=== PATIENT | female | born 1960 | race Caucasian/White ===

== ENCOUNTER 2022-10-07 13:44 | Emergency (ER) | payer OTHER, MEDICAID ==
[~2022-10-07] VITALS: Ht 172.7 cm; Wt 108.9 kg
[2022-10-07 14:18] VITALS: BP 136/85
[2022-10-07 15:35] LABS: BASOPHILS # (AUTO) 0.1 K/uL (0.00-0.22); BASOPHILS % (AUTO) 0.5 % (0.0-2.0); EOSINOPHILS # (AUTO) 0.2 K/uL (0-0.4); EOSINOPHILS % (AUTO) 1.9 % (0.0-4.0); HEMATOCRIT 27.5 % (36-48); HEMOGLOBIN 9.1 g/dL (12.0-16.0); LYMPHOCYTES # (AUTO) 1.5 K/uL (2.5-16.5); LYMPHOCYTES % (AUTO) 14.8 % (20.5-51.1); MEAN CORPUSCULAR HEMOGLOBIN 27 pg (27-31); MEAN CORPUSCULAR HGB CONC 33 g/dL (33-37); MEAN CORPUSCULAR VOLUME 80.4 fL (80-94); MONOCYTES # (AUTO) 0.7 K/uL (0.8-1.0); MONOCYTES % (AUTO) 7.6 % (1.7-9.3); NEUTROPHILS # (AUTO) 7.4 K/uL (1.8-7.7); NEUTROPHILS % (AUTO) 75.2 % (42.2-75.2); PLATELET COUNT (AUTO) 282 K/uL (140-450); RED BLOOD CELL COUNT(AUTO) 3.42 MIL/uL (4.20-5.40); RED CELL DISTRIBUTION WIDTH 16.2 % (11.6-13.7); WHITE BLOOD COUNT (AUTO) 9.8 K/uL (4.8-10.8)
[2022-10-07 15:52] LABS: ALBUMIN 3.5 g/dL (3.4-5.0); ANION GAP 12.8 (8-16); CARBON DIOXIDE 34.7 mmol/L (21-32); CREATININE 0.9 mg/dL (0.6-1.3); POTASSIUM 3.5 mmol/L (3.5-5.1); TOTAL BILIRUBIN 0.2 mg/dL (0.0-1.0)
--- NOTE | 2022-10-07 16:50 | NUR ---
TO ER BED 3
--- NOTE | 2022-10-07 17:35 | NUR ---
PT WALKED TO BATHROOM WITH O2 TANK ON.
[2022-10-07] MEDS ORDERED: LEVO750T75 PO (17:42)
[2022-10-07] MEDS ORDERED: IBUP-2213 PO (17:48)
[2022-10-07] MEDS ORDERED: KETOROLAC 15 MG/ML VIAL IM ONE (17:50)
--- NOTE | 2022-10-07 18:25 | NUR ---
Patient discharged with v/s stable. Written and verbal after care instructions given and explained. Patient alert, oriented and verbalized understanding of instructions. Ambulatory with to car. All questions addressed prior to discharge. ID band removed. Patient advised to follow up with PMD. Rx of TYLENOL AND LEVOQUIN given. Patient educated on indication of medication including possible reaction and side effects. Opportunity to ask questions provided and answered.
[2022-10-07 18:26] VITALS: BP 134/78
== END 2022-10-07 18:25 | disposition home or self-care (01) ==
LOC: MED 13:44
DX: J18.9 Pneumonia, unspecified organism (principal); L03.221 Cellulitis of neck; J44.9 Chronic obstructive pulmonary disease, unspecified; I48.91 Unspecified atrial fibrillation; Z98.890 Other specified postprocedural states; Z79.1 Long term (current) use of non-steroidal anti-inflammatories (NSAID); Z79.2 Long term (current) use of antibiotics
CPT/HCPCS: 36415; 71045; 80053; 83880; 84484; 85025; 93005; 96372; 99285; J1885; Q0092

== ENCOUNTER 2022-10-10 08:14 | Emergency (ER) | payer OTHER, MEDICAID ==
[~2022-10-10] VITALS: Ht 165.1 cm; Wt 95.3 kg
[~2022-10-10 08:14] MED LIST: IBUP-2213 PO; LEVO750T75 PO
--- NOTE | 2022-10-10 08:18 | NUR ---
REPORT RECEIVED FROM [facility]
--- NOTE | 2022-10-10 08:20 | NUR ---
TO BED 10
--- NOTE | 2022-10-10 08:24 | NUR ---
TRACHEAL SUCTION FOR LARGE THICK YELLOW SECRETIONS; SPUTUM CULTURE FORWARDED TO LAB; DR. BRAUN AWARE
[2022-10-10] MEDS ORDERED: cefTRIAXone 1,000 MG in DEXT 5% MINI-BAG PLUS 50 ML IV ONE (08:25)
[2022-10-10 08:28] VITALS: BP 115/58
--- NOTE | 2022-10-10 08:40 | NUR ---
PLACED ON A COOL AEROSOL TO TRACH MASK AT 60%/12 LPM; EFFREN/ED CURLING MACHINE OPERATOR NOTIFIED
--- NOTE | 2022-10-10 08:42 | NUR ---
TRACHEAL SUCTION FOR SMALL SEMI THICK YELLOW SECRETIONS AIRWAY PATENT
--- NOTE | 2022-10-10 08:46 | NUR ---
X-Ray at bedside.
[2022-10-10] MEDS ORDERED: cefTRIAXone 1,000 MG VIAL ONE (08:47)
[2022-10-10 09:11] LABS: BASOPHILS % (AUTO) 0.2 % (0.0-2.0); EOSINOPHILS # (AUTO) 0.2 K/uL (0-0.4); EOSINOPHILS % (AUTO) 2.3 % (0.0-4.0); HEMATOCRIT 27.5 % (36-48); HEMOGLOBIN 8.7 g/dL (12.0-16.0); LYMPHOCYTES # (AUTO) 2.3 K/uL (2.5-16.5); LYMPHOCYTES % (AUTO) 24.1 % (20.5-51.1); MEAN CORPUSCULAR HEMOGLOBIN 26 pg (27-31); MEAN CORPUSCULAR HGB CONC 31 g/dL (33-37); MEAN CORPUSCULAR VOLUME 83.7 fL (80-94); MONOCYTES # (AUTO) 0.6 K/uL (0.8-1.0); MONOCYTES % (AUTO) 6.5 % (1.7-9.3); NEUTROPHILS # (AUTO) 6.4 K/uL (1.8-7.7); NEUTROPHILS % (AUTO) 66.9 % (42.2-75.2); PLATELET COUNT (AUTO) 226 K/uL (140-450); RED BLOOD CELL COUNT(AUTO) 3.29 MIL/uL (4.20-5.40); RED CELL DISTRIBUTION WIDTH 16.8 % (11.6-13.7); WHITE BLOOD COUNT (AUTO) 9.5 K/uL (4.8-10.8)
[2022-10-10 09:29] LABS: ALBUMIN 3.2 g/dL (3.4-5.0); ANION GAP 13.4 (8-16); CARBON DIOXIDE 27.5 mmol/L (21-32); TOTAL BILIRUBIN 0.3 mg/dL (0.0-1.0)
[2022-10-10 09:30] LABS: POTASSIUM 2.9 mmol/L (3.5-5.1)
[2022-10-10] MEDS ORDERED: POTASSIUM CHLORIDE 10 MEQ TABER PO ONE (10:05)
[2022-10-10] MEDS ORDERED: [UNRECOGNIZED DRUG - CODE] PO (10:42)
[2022-10-10] MEDS ORDERED: MESA1.2T3 PO (10:42)
[2022-10-10] MEDS ORDERED: HYDR-4924 PO (10:42)
[2022-10-10] MEDS ORDERED: FAMO20TA13 PO (10:42)
[2022-10-10] MEDS ORDERED: DICY20TA2 PO (10:42)
[2022-10-10] MEDS ORDERED: FERR325E14 PO (10:42)
[2022-10-10] MEDS ORDERED: PREG50CA88 PO (10:42)
[2022-10-10] MEDS ORDERED: PREG25CA PO (10:42)
[2022-10-10] MEDS ORDERED: ESCI20TA49 PO (10:42)
[2022-10-10] MEDS ORDERED: FURO40TA9 (10:42)
[2022-10-10] MEDS ORDERED: TIOT4MIS INH (10:42)
[2022-10-10] MEDS ORDERED: SULF-954 PO (10:42)
[2022-10-10] MEDS ORDERED: ARIP5TAB61 PO (10:42)
[2022-10-10] MEDS ORDERED: BUDE10.23 INH (10:42)
[2022-10-10] MEDS ORDERED: ATOR40TA40 PO (10:42)
[2022-10-10] MEDS ORDERED: METF-346 PO (10:42)
[2022-10-10] MEDS ORDERED: ATI.5 PO (10:42)
[2022-10-10] MEDS ORDERED: LEVO0.1211 PO (10:42)
[2022-10-10] MEDS ORDERED: MORPHINE SULFATE 4 MG/ML SYR IVP ONE (11:35)
[2022-10-10 14:00] VITALS: BP 116/70
--- NOTE | 2022-10-10 16:02 | NUR ---
[facility] AT BEDSIDE FOR TRANSPORT
--- NOTE | 2022-10-10 16:07 | NUR ---
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 PT ALERT X 4, UNDERSTANDS AND ACCEPTS TRANSFER TO [facility]. DENIED URGE TO VOID AT THIS TIME
--- NOTE | 2022-10-10 16:14 | NUR ---
VOIDED PER BEDPAN- VERY SMALL AMOUNT FOR UA
--- NOTE | 2022-10-10 16:20 | NUR ---
NO DISTRESS NOTED GOOD CHEST RISE SPONTANEOUS EXUDATION OF SMALL THICK YELLOW SECRETIONS PATIENT DISCHARGED TRANSFERRED TO [facility] TRANSPORTED BY [facility]
--- NOTE | 2022-10-10 19:37 | NUR ---
ADDENDUM 1400Patient Tranfers to outside Facility Physician:DR ROLDAN Location:[facility] REPORT GIVEN TO ALENA DANIELS
== END 2022-10-10 16:20 | disposition short-term general hospital (02) ==
LOC: MED 08:14
DX: J18.9 Pneumonia, unspecified organism (principal); Z20.822 Contact with and (suspected) exposure to COVID-19; J45.909 Unspecified asthma, uncomplicated; J44.9 Chronic obstructive pulmonary disease, unspecified; I10 Essential (primary) hypertension; E03.9 Hypothyroidism, unspecified; E11.9 Type 2 diabetes mellitus without complications; Z79.4 Long term (current) use of insulin; Z79.899 Other long term (current) drug therapy; Z98.890 Other specified postprocedural states
CPT/HCPCS: 36415; 71045; 80053; 83605; 83880; 84484; 85025; 87040; 87070; 87205; 87426; 87804; 89220; 93005; 94760; 96365; 96375; 99285; J0696; J2270; Q0092

== ENCOUNTER 2023-02-21 12:43 | Inpatient (IN) | payer OTHER, MEDICAID ==
[~2023-02-21] VITALS: Ht 167.6 cm; Wt 103.9 kg
[~2023-02-21 12:43] MED LIST changes: +ARIP5TAB61 PO; +ATI.5 PO; +ATOR40TA40 PO; +BUDE10.23 INH; +DICY20TA2 PO; +ESCI20TA49 PO; +FAMO20TA13 PO; +FERR325E14 PO; +FURO40TA9; +HYDR-4924 PO; +LEVO0.1211 PO; +MESA1.2T3 PO; +METF-346 PO; +PREG25CA PO; +PREG50CA88 PO; +SULF-954 PO; +TIOT4MIS INH; +[UNRECOGNIZED DRUG - CODE] PO
[2023-02-21 12:58] VITALS: BP 114/62; PULSE 99; RESP 20; TEMP 96.4; O2SAT 95
[2023-02-21] MEDS ORDERED: predniSONE 20 MG TAB PO ONE (13:35)
[2023-02-21] MEDS ORDERED: ALBUTEROL 0.083% 2.5 MG/3 ML NEBU INH ONE (13:35)
[2023-02-21] MEDS ORDERED: IPRATROPIUM 0.02% 0.5 MG/2.5 ML NEBU INH ONE (13:35)
[2023-02-21] MEDS ORDERED: ASPIRIN 81 MG TAB.CHEW PO ONE (13:35)
--- NOTE | 2023-02-21 13:50 | NUR ---
BARRY AND FLU SWABBED, SPECIMEN GIVEN TO LAB
[2023-02-21 14:06] LABS: BASOPHILS # (AUTO) 0.1 K/uL (0.00-0.22); BASOPHILS % (AUTO) 0.5 % (0.0-2.0); EOSINOPHILS # (AUTO) 0.1 K/uL (0-0.4); EOSINOPHILS % (AUTO) 0.6 % (0.0-4.0); HEMATOCRIT 34.8 % (36-48); HEMOGLOBIN 10.8 g/dL (12.0-16.0); LYMPHOCYTES # (AUTO) 1.8 K/uL (2.5-16.5); LYMPHOCYTES % (AUTO) 8.7 % (20.5-51.1); MEAN CORPUSCULAR HEMOGLOBIN 24 pg (27-31); MEAN CORPUSCULAR HGB CONC 31 g/dL (33-37); MEAN CORPUSCULAR VOLUME 77.2 fL (80-94); MONOCYTES # (AUTO) 0.9 K/uL (0.8-1.0); MONOCYTES % (AUTO) 4.5 % (1.7-9.3); NEUTROPHILS # (AUTO) 17.2 K/uL (1.8-7.7); NEUTROPHILS % (AUTO) 85.7 % (42.2-75.2); PLATELET COUNT (AUTO) 297 K/uL (140-450); RED CELL DISTRIBUTION WIDTH 18.3 % (11.6-13.7); WHITE BLOOD COUNT (AUTO) 20.1 K/uL (4.8-10.8)
[2023-02-21 14:15] VITALS: PULSE 83; RESP 21; O2SAT 93
[2023-02-21 14:20] LABS: ALBUMIN 3.4 g/dL (3.4-5.0); ANION GAP 9.1 (8-16); CARBON DIOXIDE 37.4 mmol/L (21-32); CREATININE 0.9 mg/dL (0.6-1.3); POTASSIUM 3.5 mmol/L (3.5-5.1); TOTAL BILIRUBIN 0.3 mg/dL (0.0-1.0)
[2023-02-21] MEDS ORDERED: NACL 0.9% 1,000 ML IV ONE ×2 (14:30→15:20)
[2023-02-21] MEDS ORDERED: PIPERACILLIN/TAZOBACTAM 3.375 GM in DEXTROSE 5% 50 ML IV ONE (14:30)
[2023-02-21] MEDS ORDERED: PIPERACILLIN/TAZOBACTAM 3.375 GM VIAL IV ONE (15:37)
[2023-02-21] MEDS ORDERED: ONDANSETRON 4 MG/2 ML VIAL IVP ONE (16:15)
[2023-02-21] MEDS ORDERED: MORPHINE SULFATE 4 MG/ML SYR IVP ONE (16:15)
[2023-02-21] MEDS ORDERED: ASPIRIN 325 MG TAB PO ONE (18:00)
[2023-02-21 18:37] LABS: APPEARANCE,URINE CLEAR (CLEAR); BILIRUBIN,URINE NEGATIVE (NEGATIVE); BLOOD, URINE TRACE-I (NEGATIVE); COLOR,URINE YELLOW (YELLOW); LEUKOCYTE ESTERASE ,URINE NEGATIVE (NEGATIVE); NITRITE, URINE NEGATIVE (NEGATIVE); UGLUCOSE NEGATIVE (NEGATIVE)
[2023-02-21 18:59] LABS: RBC,URINE 0-5 /HPF (0-5)
--- NOTE | 2023-02-21 21:40 | NUR ---
Patient awake and comfortable in bed. No signs of acute distress at this time. Side rails up and call light within reach.
--- NOTE | 2023-02-21 22:00 | NUR ---
Called [facility] to follow-up on admission orders from . Awaiting new orders.
[2023-02-21] MEDS ORDERED: MAGNESIUM OXIDE 400 MG TAB PO PRN (22:35)
[2023-02-21] MEDS ORDERED: KCL 20 MEQ IN 100 mL PREMIX 200 ML IV PRN (22:35)
[2023-02-21] MEDS ORDERED: POTASSIUM CHLORIDE 10 MEQ TABER PO PRN (22:35)
[2023-02-21] MEDS ORDERED: MAG SULF 2000 MG/WATER PREMIX 50 ML IV PRN (22:35)
[2023-02-21] MEDS ORDERED: HYDROcodone/APAP 5/325 MG 1 TAB TAB PO PRN (22:35)
[2023-02-21] MEDS ORDERED: ACETAMINOPHEN 325 MG TAB PO PRN (22:35)
--- NOTE | 2023-02-21 23:25 | NUR ---
Patient assisted to bedside commode.
[2023-02-21] MEDS ORDERED: AZITHROMYCIN 500 MG INJ VIAL IV ONE (23:33)
[2023-02-21] MEDS ORDERED: AZITHROMYCIN 500 MG in DEXTROSE 5% 250 ML IV SCH (23:45)
[2023-02-21] MEDS: MORPHINE SULFATE 4 MG/ML SYR IVP PRN (23:58)
[2023-02-22] VITALS (9 sets, daily range): BP systolic 131; BP diastolic 76; PULSE 62–86; RESP 14–74; TEMP 97.7; O2SAT 94–100
[2023-02-22] MEDS: ALBUTEROL SULFATE/IPRATROPIU 3 ML SOL IH SCH ×4 (00:12→19:35)
[2023-02-22] MEDS: AZITHROMYCIN 500 MG in DEXTROSE 5% 250 ML IV SCH ×2 (00:23→23:26)
--- NOTE | 2023-02-22 00:25 | NUR ---
PATIENT COMPLAINED OF DRYNESS IN NARES, ADDED HUMIDITY TO NASAL CANNULA, CALL LIGHT WITHIN REACH, WILL CONTINUE TO MONITOR
--- NOTE | 2023-02-22 02:12 | NUR ---
Patient asleep and comfortable in bed. No complaints of pain or signs of acute distress at this time. Side rails up and call light within reach.
--- NOTE | 2023-02-22 04:55 | NUR ---
Patient awake and comfortable in bed. Patient complains of 8/10 back pain, aching, radiating to entire back. No signs of acute distress at this time. Side rails up and call light within reach.
[2023-02-22] MEDS ORDERED: DEXAMETHASONE 4 MG/ML VIAL IVP SCH (05:00)
[2023-02-22] MEDS: MORPHINE SULFATE 4 MG/ML SYR IVP PRN ×3 (05:18→20:28)
--- NOTE | 2023-02-22 06:45 | NUR ---
Patient asleep and comfortable in bed. No complaints of pain or signs of acute distress at this time. Side rails up and call light within reach.
[2023-02-22] MEDS: BUDESONIDE 0.5 MG/2 ML NEBU INH SCH ×2 (07:37→19:43)
--- NOTE | 2023-02-22 07:37 | NUR ---
STABLE RESTING COMFORTABLY GOOD CHEST RISE RECEIVED ON HUMIDIFIED SUPPLEMENTAL OXYGEN AT 3 LPM VIA NASAL CANNULA SATURATION 99% POST HHN THERAPY TITRATED FIO2 TO 2 LPM LIDIA/SECURITY POLICE NOTIFIED
--- NOTE | 2023-02-22 08:10 | NUR ---
pt awake. 2L VIA NC. denies pain at this time. on quality assurance monitor body. bed at lowest position, bed rails upx2.
--- NOTE | 2023-02-22 08:14 | NUR ---
pt provided w/ breakfast. pt awake, repositioned and eating in bed.
--- NOTE | 2023-02-22 08:38 | NUR ---
PT C/O INCREASED SOB D/T ANXIETY. MD SRINIVAS VÁSQUEZ Addendum: 02/22/23 at 0859 by PHSEP V ORDER RECEIVED FROM MD ESPINO. ORDERS READ BACK, CONFIRMED AND CARRIED OUT. ATIVAN 1MG IVP Q6H PRN
[2023-02-22] MEDS ORDERED: LORazepam 2 MG/ML VIAL ONE (08:47)
--- NOTE | 2023-02-22 08:54 | NUR ---
PATIENT HAS BEEN SCREENED AND CATEGORIZED MODERATE NUTRITION RISK. PATIENT WILL BE SEEN WITHIN 3-5 DAYS OF ADMISSION. 02/24/23-02/26/[address]
[2023-02-22] MEDS ORDERED: LORazepam 2 MG/ML VIAL IVP PRN (09:00)
[2023-02-22] MEDS ORDERED: cefTRIAXone 2,000 MG VIAL ONE (09:14)
[2023-02-22] MEDS: cefTRIAXone 2,000 MG in DEXTROSE 5% 100 ML IV SCH (09:29)
[2023-02-22] MEDS: ASPIRIN 81 MG TAB.CHEW PO SCH (09:31)
[2023-02-22] MEDS: DOCUSATE SODIUM 100 MG GELCAP PO SCH (09:31)
[2023-02-22] MEDS: ATORVASTATIN 20 MG TAB PO SCH (09:33)
[2023-02-22] MEDS: ENOXAPARIN 40 MG/0.4 ML SYR SUBQ SCH (09:37)
--- NOTE | 2023-02-22 09:55 | NUR ---
MD ESPINO AT BEDSIDE FOR EVALUATION
--- NOTE | 2023-02-22 11:54 | NUR ---
pt provided w/ lunch. pt awake, respositioned and eating in bed
[2023-02-22] MEDS ORDERED: INSULIN LISPRO SLIDING SCALE 100 UNITS/ML VIAL SUBQ PRN (13:45)
[2023-02-22] MEDS ORDERED: DEXTROSE 50% 50 ML SYR IVP PRN (13:45)
--- NOTE | 2023-02-22 13:46 | NUR ---
MD ESPINO NOTIFIED OF PT W/O SLIDING SCALE ORDER. ORDER RECEIVED FOR HUMALOG SLIDING SCALE. ORDERS READ BACK, CONFIRMED AND CARRIED OUT
--- NOTE | 2023-02-22 13:59 | NUR ---
rt at bedside for breathing tx
[2023-02-22] MEDS ORDERED: LORazepam 0.5 MG TAB PO PRN (14:10)
[2023-02-22] MEDS: NACL 0.9% 1,000 ML IV SCH (14:37)
--- NOTE | 2023-02-22 14:46 | NUR ---
PT RECOMMENDED FOR NECTAR TEXURE, BY SPEECH THERAPY. DIET ORDER UPDATED
--- NOTE | 2023-02-22 15:55 | NUR ---
RECEIVED REPORT FROM FARM EQUIPMENT ENGINE MECHANIC, PT ARRIVED IN A GURNEY. WALKED TO HER BED. ORIENTED TO NEW ENVIRONMENT, CALL LIGHT, BATHROOM, TV. PT ON 3L NC, NO SOB. NO RESPIRATORY DISTRESS OR DISCOMFORT, BREATHING EVEN AND UNLABORED. CALL LIGHT WITHIN REACH.
--- NOTE | 2023-02-22 15:58 | NUR ---
Patient will be admitted to care of [facility]. Admited to TELEMETRY. Will go to room 107B. Belongings list completed. Report to ELVIRA DANIELS.
--- NOTE | 2023-02-22 16:10 | NUR ---
The patient's care was reviewed and supervised by Jaky Vázquez, RN, RN.
--- NOTE | 2023-02-22 16:11 | NUR ---
DC PLANNING: RECEIVED A CALL FROM [facility] ALLY SPOKE WITH CANDY [phone] STATED TO FAX ALL THE CLINICALS. FAXED TO [phone] PER CANDY WILL TAKE PATIENT TO CONTRACTED FACILITY. NOTIFIED PATIENT AND PT AGREED. CM TO FOLLOW Addendum: 02/23/23 at 1100 by Sabrina Dewitt RN DC PLANNING: CALLED [facility] [phone] SPOKE WITH CANDY STATED [facility] ACCEPTED PATIENT UNDER THE CARE OF DR GARZA. PATIENT CAN GO TO ROOM 2140 NUMBER TO GIVE REPORT [phone] PER CANDY WILL CALL US ONCE SHE ARRANGE TRANSPORT. NOTIFIED ALDAIR DANIELS. ALLY TO FOLLOW
[2023-02-22] MEDS: BLOOD GLUCOSE MONITORING 1 DEV DEV FS SCH ×2 (16:30→20:24)
[2023-02-22] MEDS: INSULIN LISPRO SLIDING SCALE 100 UNITS/ML VIAL SUBQ PRN ×2 (17:33→20:25)
[2023-02-22] MEDS: PREGABALIN 50 MG CAP PO SCH (17:35)
[2023-02-22] MEDS ORDERED: ASPI81CT95 PO (17:52)
[2023-02-22] MEDS ORDERED: [UNRECOGNIZED DRUG - CODE] IV (17:52)
[2023-02-22] MEDS ORDERED: ATOR20TA40 PO (17:52)
[2023-02-22] MEDS ORDERED: DEC10I IVP (17:52)
--- NOTE | 2023-02-22 19:50 | NUR ---
GAVE BEDSIDE REPORT TO RESIDENT DIRECTOR NURSE FOR CONTINUITY OF CARE. PT IS STABLE, NO SIGN OF DISTRESS. APOLLO PUT. CALL LIGHT WITHIN REACH.
--- NOTE | 2023-02-22 19:55 | NUR ---
PATIENT AWAKE ALERT VERBALLY RESPONSIVE WELL RESTED. ABLE TO MAKE NEEDS KNOWN. NO ACUTE DISTRESS O2 AT 3L NC SATING 94%. IVF NS INFUSING ORDERED TO RAC 20 GAUGE. CALL LIGHT WITHIN REACH. SAFETY PRECAUTIONS ARE IN PLACE.
--- NOTE | 2023-02-22 20:24 | NUR ---
ADMINISTERED SCHEDULED DUE MEDICATIONS.
[2023-02-22] MEDS: FAMOTIDINE 20 MG TAB PO SCH (20:27)
--- NOTE | 2023-02-22 20:28 | NUR ---
PATIENT COMPLAINED OF SEVERE PAIN , 8/10 TO LEFT SHOULDER, CHEST AND HEAD, MEDICATED WITH MORPHINE IVP.
[2023-02-23] VITALS: BP 128/76; PULSE 61; PULSE 67; RESP 18; TEMP 96.7; O2SAT 95
[2023-02-23] MEDS: MORPHINE SULFATE 4 MG/ML SYR IVP PRN ×2 (02:06→08:27)
[2023-02-23] MEDS: NACL 0.9% 1,000 ML IV SCH ×2 (02:40→05:47)
[2023-02-23 04:00] VITALS: BP 130/74; PULSE 51; PULSE 61; RESP 17; TEMP 97; O2SAT 98
[2023-02-23] MEDS ORDERED: LEVOTHYROXINE 0.1 MG TAB ONE (06:19)
[2023-02-23] MEDS: LEVOTHYROXINE 0.025 MG TAB ONE ×2 (06:27→06:37)
[2023-02-23] MEDS ORDERED: LEVOTHYROXINE 0.025 MG, LEVOTHYROXINE 0.1 MG PO SCH ×2 (06:30)
[2023-02-23] MEDS: BLOOD GLUCOSE MONITORING 1 DEV DEV FS SCH ×2 (06:55→11:30)
[2023-02-23] MEDS: BUDESONIDE 0.5 MG/2 ML NEBU INH SCH (07:15)
[2023-02-23] MEDS: ALBUTEROL SULFATE/IPRATROPIU 3 ML SOL IH SCH (07:15)
[2023-02-23 07:16] VITALS: PULSE 59; RESP 18; O2SAT 95
--- NOTE | 2023-02-23 07:20 | NUR ---
RECEIVED BEDSIDE REPORT FROM FITTING SUPERVISOR NURSE FOR CONTINUITY OF CARE. PT IS AWAKE IN 3L NC. NO SIGN OF DISTRESS, CALL LIGHT WITHIN REACH.
[2023-02-23 08:00] VITALS: BP 128/68; PULSE 74; PULSE 77; RESP 20; TEMP 97.4; O2SAT 100; O2SAT 92; O2SAT 94
[2023-02-23] MEDS: ASPIRIN 81 MG TAB.CHEW PO SCH (08:20)
[2023-02-23] MEDS: FAMOTIDINE 20 MG TAB PO SCH (08:21)
[2023-02-23] MEDS: PREGABALIN 50 MG CAP PO SCH (08:22)
[2023-02-23] MEDS: DOCUSATE SODIUM 100 MG GELCAP PO SCH (08:22)
[2023-02-23] MEDS: cefTRIAXone 2,000 MG in DEXTROSE 5% 100 ML IV SCH (08:23)
[2023-02-23] MEDS: ATORVASTATIN 20 MG TAB PO SCH (08:23)
[2023-02-23] MEDS: ENOXAPARIN 40 MG/0.4 ML SYR SUBQ SCH (08:33)
[2023-02-23] MEDS ORDERED: NON-FORMULARY ITEM (Atorvastatin Calcium 1 TAB) PO SCH (09:00)
[2023-02-23] MEDS ORDERED: ATORVASTATIN 20 MG TAB PO SCH (09:00)
[2023-02-23] MEDS ORDERED: DEXAMETHASONE 10 MG/ML VIAL IVP SCH (09:00)
[2023-02-23] MEDS ORDERED: NON-FORMULARY ITEM (Levothyroxine Sodium 1 TAB) PO SCH (09:00)
[2023-02-23] MEDS ORDERED: ESCITALOPRAM 20 MG TAB PO SCH (09:00)
[2023-02-23 09:14] LABS: BASOPHILS % (AUTO) 0.2 % (0.0-2.0); EOSINOPHILS # (AUTO) 0.1 K/uL (0-0.4); EOSINOPHILS % (AUTO) 0.6 % (0.0-4.0); HEMATOCRIT 30.5 % (36-48); HEMOGLOBIN 9.4 g/dL (12.0-16.0); LYMPHOCYTES # (AUTO) 1.7 K/uL (2.5-16.5); LYMPHOCYTES % (AUTO) 17.8 % (20.5-51.1); MEAN CORPUSCULAR HEMOGLOBIN 24 pg (27-31); MEAN CORPUSCULAR HGB CONC 31 g/dL (33-37); MEAN CORPUSCULAR VOLUME 78.8 fL (80-94); MONOCYTES # (AUTO) 0.7 K/uL (0.8-1.0); MONOCYTES % (AUTO) 6.9 % (1.7-9.3); NEUTROPHILS # (AUTO) 7.2 K/uL (1.8-7.7); NEUTROPHILS % (AUTO) 74.5 % (42.2-75.2); PLATELET COUNT (AUTO) 224 K/uL (140-450); RED BLOOD CELL COUNT(AUTO) 3.87 MIL/uL (4.20-5.40); RED CELL DISTRIBUTION WIDTH 18.1 % (11.6-13.7); WHITE BLOOD COUNT (AUTO) 9.7 K/uL (4.8-10.8)
[2023-02-23 09:35] LABS: ANION GAP 10.4 (8-16); CREATININE 0.7 mg/dL (0.6-1.3); POTASSIUM 3.4 mmol/L (3.5-5.1)
--- NOTE | 2023-02-23 11:45 | NUR ---
PT WAS DISCHARGED AND PICKED UP BY NON EMERGENT TRANSPORT GOING TO [facility]. PT IS ON 3L NC, STABLE AND NO SIGNS OF DISTRESS, IV AND ID BAND REMOVED. CALLED [facility] AND TALKED TO TRINA FOR TRANSFER OF CARE.
[2023-02-24] MEDS ORDERED: predniSONE 20 MG TAB PO SCH (09:00)
== END 2023-02-23 11:45 | disposition short-term general hospital (02) | DRG 871 ==
LOC: MED 12:43 → MMU 22:33 → MTU 02-22 05:51
PROVIDERS: ADMIT Internal Medicine; ATTEND Internal Medicine
DX: A41.9 Sepsis, unspecified organism (principal); I63.9 Cerebral infarction, unspecified; J18.9 Pneumonia, unspecified organism; J96.21 Acute and chronic respiratory failure with hypoxia; J44.1 Chronic obstructive pulmonary disease with (acute) exacerbation; J96.10 Chronic respiratory failure, unspecified whether with hypoxia or hypercapnia; E87.20 Acidosis, unspecified; Z99.11 Dependence on respirator [ventilator] status; I69.354 Hemiplegia and hemiparesis following cerebral infarction affecting left non-dominant side; Z93.0 Tracheostomy status; Z79.899 Other long term (current) drug therapy; D64.9 Anemia, unspecified; E03.9 Hypothyroidism, unspecified; E66.9 Obesity, unspecified; Z20.822 Contact with and (suspected) exposure to COVID-19; R65.20 Severe sepsis without septic shock; Z68.37 Body mass index [BMI] 37.0-37.9, adult
CPT/HCPCS: 36415; 70450; 71045; 80048; 80053; 81001; 82948; 83605; 83735; 83880; 84484; 85025; 87040; 87081; 92526; 93005; 94640; 96365; 96375; 97116; 97163-GP; 97530; 99291; J0456; J0696; J1100; J1650; J1815; J2060; J2270; J2405; J2543; J7060; J7512; J7613; J7626; J7644; Q9967

== ENCOUNTER 2023-04-27 10:37 | Emergency (ER) | payer OTHER, MEDICAID ==
[~2023-04-27] VITALS: Ht 167.6 cm; Wt 104.3 kg
[~2023-04-27 10:37] MED LIST changes: -ARIP5TAB61 PO; +ASPI81CT95 PO; +ATOR20TA40 PO; -BUDE10.23 INH; +DEC10I IVP; -DICY20TA2 PO; -FERR325E14 PO; -FURO40TA9; -HYDR-4924 PO; -IBUP-2213 PO; -LEVO750T75 PO; -MESA1.2T3 PO; -METF-346 PO; -PREG25CA PO; +PREG50CA PO; -PREG50CA88 PO; -SULF-954 PO; -TIOT4MIS INH; +[UNRECOGNIZED DRUG - CODE] IV; -[UNRECOGNIZED DRUG - CODE] PO
[2023-04-27 10:45] VITALS: BP 117/74; PULSE 90; RESP 24; TEMP 99.3; O2SAT 90
[2023-04-27 10:57] VITALS: O2SAT 90
[2023-04-27] MEDS ORDERED: ALBUTEROL SULFATE/IPRATROPIU 3 ML SOL IH ONE ×3 (11:29→11:35)
[2023-04-27 11:33] VITALS: PULSE 95; RESP 17; O2SAT 96
[2023-04-27 11:36] LABS: FLU A ANTIGEN negative (NEGATIVE); FLU B ANTIGEN NEGATIVE (NEGATIVE)
[2023-04-27 11:42] VITALS: PULSE 96; RESP 17; O2SAT 93
[2023-04-27 12:07] LABS: EOSINOPHILS # (AUTO) 0.1 K/uL (0-0.4); HEMOGLOBIN 10.6 g/dL (12.0-16.0); LYMPHOCYTES # (AUTO) 2.3 K/uL (2.5-16.5)
[2023-04-27 12:11] LABS: BASOPHILS % (AUTO) 0.4 % (0.0-2.0); EOSINOPHILS % (AUTO) 1.1 % (0.0-4.0); HEMATOCRIT 33.3 % (36-48); LYMPHOCYTES % (AUTO) 21.5 % (20.5-51.1); MEAN CORPUSCULAR HEMOGLOBIN 25 pg (27-31); MEAN CORPUSCULAR HGB CONC 32 g/dL (33-37); MEAN CORPUSCULAR VOLUME 77.8 fL (80-94); MONOCYTES # (AUTO) 0.8 K/uL (0.8-1.0); MONOCYTES % (AUTO) 7.1 % (1.7-9.3); NEUTROPHILS # (AUTO) 7.5 K/uL (1.8-7.7); NEUTROPHILS % (AUTO) 69.9 % (42.2-75.2); PLATELET COUNT (AUTO) 280 K/uL (140-450); RED BLOOD CELL COUNT(AUTO) 4.28 MIL/uL (4.20-5.40); RED CELL DISTRIBUTION WIDTH 17.9 % (11.6-13.7); WHITE BLOOD COUNT (AUTO) 10.7 K/uL (4.8-10.8)
[2023-04-27 12:30] LABS: ALBUMIN 3.3 g/dL (3.4-5.0); ANION GAP 8.5 (8-16); CALCIUM 8.5 mg/dL (8.5-10.1); CARBON DIOXIDE 35.3 mmol/L (21-32); CREATININE 0.8 mg/dL (0.6-1.3); POTASSIUM 3.8 mmol/L (3.5-5.1); TOTAL BILIRUBIN 0.3 mg/dL (0.0-1.0); TOTAL PROTEIN, SERUM 7.1 g/dL (6.4-8.2)
[2023-04-27] MEDS ORDERED: methylPREDNISolone SS 125 MG in WATER STERILE 2 ML IV ONE (12:45)
[2023-04-27] MEDS ORDERED: methylPREDNISolone SS 125 MG/2 ML VIAL IVP SCH (12:50)
[2023-04-27] MEDS ORDERED: cefTRIAXone 1,000 MG VIAL ONE (12:52)
[2023-04-27] MEDS ORDERED: FUROSEMIDE 40 MG/4 ML VIAL IVP ONE (14:10)
[2023-04-27] MEDS ORDERED: METF-346 PO (16:46)
[2023-04-27] MEDS ORDERED: DICY20TA19 PO (16:46)
[2023-04-27] MEDS ORDERED: OXYB5TAB26 PO (16:46)
[2023-04-27] MEDS ORDERED: IBUP-2217 PO (16:46)
[2023-04-27] MEDS ORDERED: [UNRECOGNIZED DRUG - OTHER] (16:46)
[2023-04-27] MEDS ORDERED: ARIP20TA1 PO (16:46)
[2023-04-27] MEDS ORDERED: DIVA-56 PO (16:46)
[2023-04-27] MEDS ORDERED: PANT40EC56 PO (16:46)
[2023-04-27] MEDS ORDERED: POTA10TA81 PO (16:46)
[2023-04-27] MEDS ORDERED: BENZ100C6 PO (16:46)
[2023-04-27] MEDS ORDERED: [UNRECOGNIZED DRUG - CODE] PO (16:46)
[2023-04-27] MEDS ORDERED: LORazepam 0.5 MG TAB ONE (18:19)
[2023-04-27] MEDS ORDERED: LORazepam 0.5 MG TAB PO ONE (18:20)
[2023-04-27 19:55] VITALS: BP 118/70; PULSE 84; RESP 24; TEMP 96.3; O2SAT 96
[2023-04-27] MEDS ORDERED: MORPHINE SULFATE 4 MG/ML SYR IVP ONE (20:00)
== END 2023-04-27 20:11 | disposition short-term general hospital (02) ==
LOC: MED 10:37
DX: J44.1 Chronic obstructive pulmonary disease with (acute) exacerbation (principal); I50.9 Heart failure, unspecified; D50.9 Iron deficiency anemia, unspecified; E11.9 Type 2 diabetes mellitus without complications; E07.9 Disorder of thyroid, unspecified; I11.0 Hypertensive heart disease with heart failure; Z79.899 Other long term (current) drug therapy; Z20.822 Contact with and (suspected) exposure to COVID-19
CPT/HCPCS: 36415; 71045; 80053; 83880; 84484; 85025; 87426; 87804; 93005; 94640; 96374; 96375; 99285; J0696; J1940; J2270; J2930

== ENCOUNTER 2023-06-20 14:10 | Emergency (ER) | payer OTHER, MEDICAID ==
[~2023-06-20] VITALS: Ht 167.6 cm; Wt 111.6 kg
[~2023-06-20 14:10] MED LIST changes: +ARIP20TA1 PO; +BENZ100C6 PO; +DICY20TA19 PO; +DIVA-56 PO; +IBUP-2217 PO; +METF-346 PO; +OXYB5TAB26 PO; +PANT40EC56 PO; +POTA10TA81 PO; +[UNRECOGNIZED DRUG - CODE] PO; +[UNRECOGNIZED DRUG - OTHER]
[2023-06-20 14:31] VITALS: BP 135/80; PULSE 88; RESP 18; TEMP 97.4; O2SAT 96
[2023-06-20 15:04] LABS: BASOPHILS # (AUTO) 0.1 K/uL (0.00-0.22); BASOPHILS % (AUTO) 0.7 % (0.0-2.0); EOSINOPHILS # (AUTO) 0.2 K/uL (0-0.4); EOSINOPHILS % (AUTO) 1.7 % (0.0-4.0); HEMATOCRIT 31.4 % (36-48); HEMOGLOBIN 9.9 g/dL (12.0-16.0); LYMPHOCYTES # (AUTO) 2.1 K/uL (2.5-16.5); LYMPHOCYTES % (AUTO) 22.7 % (20.5-51.1); MEAN CORPUSCULAR HEMOGLOBIN 24 pg (27-31); MEAN CORPUSCULAR HGB CONC 32 g/dL (33-37); MEAN CORPUSCULAR VOLUME 76.5 fL (80-94); MONOCYTES # (AUTO) 0.7 K/uL (0.8-1.0); MONOCYTES % (AUTO) 7.8 % (1.7-9.3); NEUTROPHILS # (AUTO) 6.2 K/uL (1.8-7.7); NEUTROPHILS % (AUTO) 67.1 % (42.2-75.2); PLATELET COUNT (AUTO) 345 K/uL (140-450); RED BLOOD CELL COUNT(AUTO) 4.11 MIL/uL (4.20-5.40); RED CELL DISTRIBUTION WIDTH 17.7 % (11.6-13.7); WHITE BLOOD COUNT (AUTO) 9.3 K/uL (4.8-10.8)
[2023-06-20 15:20] LABS: INR 0.99 (0.8-1.2); PARTIAL THROMBOPLASTIN TIME 26.7 secs (22-35.6); PROTHROMBIN TIME 10.4 secs (10.8-13.4)
[2023-06-20 15:38] LABS: ALBUMIN 3.2 g/dL (3.4-5.0); ANION GAP 11.6 (8-16); CALCIUM 8.7 mg/dL (8.5-10.1); CARBON DIOXIDE 32.7 mmol/L (21-32); CREATININE 0.9 mg/dL (0.6-1.3); POTASSIUM 3.3 mmol/L (3.5-5.1); TOTAL BILIRUBIN 0.2 mg/dL (0.0-1.0); TOTAL PROTEIN, SERUM 6.8 g/dL (6.4-8.2)
[2023-06-20 17:14] VITALS: BP 135/80; TEMP 97.4
[2023-06-20] MEDS: ALBUTEROL 0.083% 2.5 MG/3 ML NEBU INH ONE ×2 (17:52→22:15)
[2023-06-20] MEDS: IPRATROPIUM 0.02% 0.5 MG/2.5 ML NEBU INH ONE ×2 (17:52→22:16)
[2023-06-20 17:53] VITALS: PULSE 78; RESP 18; O2SAT 98
[2023-06-20] MEDS ORDERED: cefTRIAXone 2,000 MG VIAL ONE (18:49)
[2023-06-20] MEDS: cefTRIAXone 2,000 MG in DEXTROSE 5% 100 ML IV ONE (18:53)
[2023-06-20] MEDS: oxyCODONE 10 MG TABER PO ONE (19:57)
[2023-06-20 20:00] VITALS: O2SAT 98
[2023-06-20] MEDS: KETOROLAC 30 MG/ML VIAL IVP ONE ×2 (20:13→22:11)
[2023-06-20] MEDS: predniSONE 20 MG TAB PO ONE (22:15)
[2023-06-20] MEDS: ACETAMINOPHEN EXTRA STRENGTH 500 MG TAB PO ONE (22:15)
[2023-06-20 22:16] VITALS: PULSE 77; RESP 23; O2SAT 97
== END 2023-06-21 00:02 | disposition short-term general hospital (02) ==
LOC: MED 14:10
DX: J44.1 Chronic obstructive pulmonary disease with (acute) exacerbation (principal); E11.9 Type 2 diabetes mellitus without complications; E03.9 Hypothyroidism, unspecified; I11.0 Hypertensive heart disease with heart failure; I50.9 Heart failure, unspecified; Z79.899 Other long term (current) drug therapy; Z79.2 Long term (current) use of antibiotics; Z79.82 Long term (current) use of aspirin
CPT/HCPCS: 36415; 71045; 80053; 83880; 84484; 85025; 85610; 85730; 87040; 93005; 94640; 96365; 96375; 96376; 99285; J0696; J1885; J7512; J7613; J7644

== ENCOUNTER 2024-01-16 01:25 | Inpatient (IN) | payer OTHER, MEDICAID ==
[~2024-01-16] VITALS: Ht 167.6 cm; Wt 104.3 kg
[~2024-01-16 01:25] MED LIST changes: -OXYB5TAB26 PO; +[UNRECOGNIZED DRUG - CODE] PO
[2024-01-16 01:42] VITALS: BP 134/93; PULSE 94; RESP 17; TEMP 98.6; O2SAT 96
[2024-01-16 02:31] VITALS: PULSE 76; RESP 15; O2SAT 99
[2024-01-16] MEDS: ALBUTEROL SULFATE/IPRATROPIU 3 ML SOL IH ONE (02:34)
[2024-01-16 02:40] LABS: BASOPHILS % (AUTO) 0.2 % (0.0-2.0); EOSINOPHILS # (AUTO) 0.2 K/uL (0-0.4); EOSINOPHILS % (AUTO) 1.9 % (0.0-4.0); HEMOGLOBIN 9.5 g/dL (12.0-16.0); LYMPHOCYTES # (AUTO) 1.4 K/uL (2.5-16.5); LYMPHOCYTES % (AUTO) 16.7 % (20.5-51.1); MEAN CORPUSCULAR HEMOGLOBIN 25 pg (27-31); MEAN CORPUSCULAR HGB CONC 32 g/dL (33-37); MEAN CORPUSCULAR VOLUME 77.8 fL (80-94); MONOCYTES # (AUTO) 0.6 K/uL (0.8-1.0); MONOCYTES % (AUTO) 6.6 % (1.7-9.3); NEUTROPHILS # (AUTO) 6.3 K/uL (1.8-7.7); NEUTROPHILS % (AUTO) 74.6 % (42.2-75.2); PLATELET COUNT (AUTO) 202 K/uL (140-450); RED BLOOD CELL COUNT(AUTO) 3.85 MIL/uL (4.20-5.40); RED CELL DISTRIBUTION WIDTH 20.4 % (11.6-13.7); WHITE BLOOD COUNT (AUTO) 8.4 K/uL (4.8-10.8)
[2024-01-16 02:51] LABS: ANION GAP 6.8 (8-16); CALCIUM 8.1 mg/dL (8.5-10.1); CARBON DIOXIDE 35.5 mmol/L (21-32); CREATININE 0.9 mg/dL (0.6-1.3); POTASSIUM 4.3 mmol/L (3.5-5.1)
[2024-01-16 02:59] LABS: ALANINE AMINOTRANSFERASE 16 U/L (12-78); ALKALINE PHOSPHATASE 59 U/L (50-136); ASPARTATE AMINOTRANSFERASE 8 U/L (15-37); BILIRUBIN,DIRECT 0.1 mg/dL (0.0-0.3); CREATINE KINASE, TOTAL 26 U/L (26-192); INR 0.92 (0.8-1.2); PROTHROMBIN TIME 9.7 secs (10.8-13.4); TOTAL BILIRUBIN 0.2 mg/dL (0.0-1.0); TOTAL PROTEIN, SERUM 6.1 g/dL (6.4-8.2)
[2024-01-16 03:00] LABS: LACTIC ACID 0.6 mmol/L (0.4-2.0)
[2024-01-16] MEDS: NITROGLYCERIN 0.4 MG TAB SL ONE (03:16)
[2024-01-16] MEDS: ACETAMINOPHEN 325 MG TAB PO ONE (03:17)
[2024-01-16] MEDS ORDERED: cefTRIAXone 1,000 MG VIAL ONE (03:40)
[2024-01-16] MEDS: MORPHINE SULFATE 4 MG/ML SYR IVP ONE (03:50)
[2024-01-16] MEDS: ONDANSETRON 4 MG/2 ML VIAL IVP ONE (03:50)
[2024-01-16] MEDS ORDERED: MAGNESIUM OXIDE 400 MG TAB PO PRN (03:55)
[2024-01-16] MEDS ORDERED: KCL 20 MEQ IN 100 mL PREMIX 200 ML IV PRN (03:55)
[2024-01-16] MEDS ORDERED: POTASSIUM CHLORIDE 10 MEQ TABER PO PRN (03:55)
[2024-01-16] MEDS ORDERED: ACETAMINOPHEN 325 MG TAB PO PRN (03:55)
[2024-01-16] MEDS ORDERED: MAG SULF 2000 MG/WATER PREMIX 50 ML IV PRN (03:55)
[2024-01-16] MEDS ORDERED: DEXTROSE 50% 50 ML SYR IVP PRN (04:05)
[2024-01-16] MEDS ORDERED: AZTREONAM 1,000 MG VIAL ONE (05:43)
[2024-01-16] MEDS: AZITHROMYCIN 1,000 MG in DEXTROSE 5% 500 ML IV ONE (06:21)
[2024-01-16] MEDS ORDERED: methylPREDNISolone SS 125 MG/2 ML VIAL ONE (07:47)
[2024-01-16] MEDS: AZITHROMYCIN 500 MG in DEXTROSE 5% 250 ML IV SCH (07:48)
[2024-01-16] MEDS: methylPREDNISolone SS 125 MG/2 ML VIAL IVP ONE (07:50)
[2024-01-16] MEDS: BLOOD GLUCOSE MONITORING 1 DEV DEV FS SCH (08:02)
[2024-01-16] MEDS: HYDROcodone/APAP 5/325 MG 1 TAB TAB PO PRN (08:07)
[2024-01-16] MEDS: DOCUSATE SODIUM 100 MG GELCAP PO SCH (09:17)
[2024-01-16 11:45] VITALS: O2SAT 97
[2024-01-16] MEDS: MORPHINE SULFATE 4 MG/ML SYR IVP PRN (12:18)
[2024-01-16 15:57] VITALS: O2SAT 97
[2024-01-16] MEDS: INSULIN LISPRO SLIDING SCALE 100 UNITS/ML VIAL SUBQ PRN (16:58)
[2024-01-16] MEDS: methylPREDNISolone SS 125 MG/2 ML VIAL IVP SCH (21:43)
[2024-01-16 22:00] VITALS: BP 117/68; PULSE 60; RESP 20; TEMP 97.1; O2SAT 93
[2024-01-16] MEDS: ZOLPIDEM 5 MG TAB PO PRN (22:52)
[2024-01-16] MEDS: ONDANSETRON 4 MG/2 ML VIAL IVP PRN (22:53)
[2024-01-16 23:24] VITALS: O2SAT 95
[2024-01-17] VITALS (11 sets, daily range): BP systolic 100–124; BP diastolic 56–65; PULSE 51–73; RESP 18–61; TEMP 96.9–98.2; O2SAT 93–98
[2024-01-17] MEDS: cefTRIAXone 1,000 MG VIAL ONE (03:08)
[2024-01-17] MEDS: AZITHROMYCIN 500 MG INJ VIAL IV ONE (03:09)
[2024-01-17 05:25] LABS: BASOPHILS % (AUTO) 0.1 % (0.0-2.0); EOSINOPHILS % (AUTO) 0.2 % (0.0-4.0); HEMATOCRIT 29.3 % (36-48); HEMOGLOBIN 9.2 g/dL (12.0-16.0); LYMPHOCYTES # (AUTO) 0.5 K/uL (2.5-16.5); LYMPHOCYTES % (AUTO) 5.6 % (20.5-51.1); MEAN CORPUSCULAR HEMOGLOBIN 25 pg (27-31); MEAN CORPUSCULAR HGB CONC 31 g/dL (33-37); MEAN CORPUSCULAR VOLUME 78.8 fL (80-94); MONOCYTES # (AUTO) 0.1 K/uL (0.8-1.0); MONOCYTES % (AUTO) 0.5 % (1.7-9.3); NEUTROPHILS # (AUTO) 9.1 K/uL (1.8-7.7); NEUTROPHILS % (AUTO) 93.6 % (42.2-75.2); PLATELET COUNT (AUTO) 189 K/uL (140-450); RED BLOOD CELL COUNT(AUTO) 3.72 MIL/uL (4.20-5.40); RED CELL DISTRIBUTION WIDTH 20.5 % (11.6-13.7); WHITE BLOOD COUNT (AUTO) 9.8 K/uL (4.8-10.8)
[2024-01-17 06:14] LABS: ALBUMIN 2.9 g/dL (3.4-5.0); CARBON DIOXIDE 29.7 mmol/L (21-32); CREATININE 0.8 mg/dL (0.6-1.3); MAGNESIUM 1.8 mg/dL (1.8-2.4); POTASSIUM 4.7 mmol/L (3.5-5.1); TOTAL BILIRUBIN 0.1 mg/dL (0.0-1.0); TOTAL PROTEIN, SERUM 6.2 g/dL (6.4-8.2)
[2024-01-18] VITALS (10 sets, daily range): BP systolic 111–126; BP diastolic 58–77; PULSE 46–131; RESP 18–20; TEMP 97.1–98.1; O2SAT 93–98
[2024-01-18 05:46] LABS: BASOPHILS % (AUTO) 0.1 % (0.0-2.0); HEMATOCRIT 29.2 % (36-48); HEMOGLOBIN 9.2 g/dL (12.0-16.0); LYMPHOCYTES # (AUTO) 0.7 K/uL (2.5-16.5); LYMPHOCYTES % (AUTO) 5.9 % (20.5-51.1); MEAN CORPUSCULAR HEMOGLOBIN 25 pg (27-31); MEAN CORPUSCULAR HGB CONC 32 g/dL (33-37); MEAN CORPUSCULAR VOLUME 78.6 fL (80-94); MONOCYTES # (AUTO) 0.2 K/uL (0.8-1.0); NEUTROPHILS # (AUTO) 10.5 K/uL (1.8-7.7); PLATELET COUNT (AUTO) 192 K/uL (140-450); RED BLOOD CELL COUNT(AUTO) 3.71 MIL/uL (4.20-5.40); RED CELL DISTRIBUTION WIDTH 20.2 % (11.6-13.7); WHITE BLOOD COUNT (AUTO) 11.4 K/uL (4.8-10.8)
[2024-01-18 06:14] LABS: ALBUMIN 2.9 g/dL (3.4-5.0); ANION GAP 10.3 (8-16); CALCIUM 8.3 mg/dL (8.5-10.1); CARBON DIOXIDE 31.2 mmol/L (21-32); CREATININE 0.8 mg/dL (0.6-1.3); MAGNESIUM 2.1 mg/dL (1.8-2.4); POTASSIUM 4.5 mmol/L (3.5-5.1); TOTAL BILIRUBIN 0.1 mg/dL (0.0-1.0); TOTAL PROTEIN, SERUM 6.1 g/dL (6.4-8.2)
[2024-01-18] MEDS: ALBUTEROL SULFATE/IPRATROPIU 3 ML SOL IH PRN (19:53)
[2024-01-19 00:44] VITALS: PULSE 56
[2024-01-19 04:00] VITALS: BP 116/57; PULSE 56; RESP 18; TEMP 96.6; O2SAT 97
[2024-01-19 04:37] VITALS: PULSE 50
[2024-01-19 05:14] LABS: BASOPHILS % (AUTO) 0.1 % (0.0-2.0); HEMATOCRIT 29.3 % (36-48); HEMOGLOBIN 9.4 g/dL (12.0-16.0); LYMPHOCYTES # (AUTO) 0.7 K/uL (2.5-16.5); LYMPHOCYTES % (AUTO) 6.5 % (20.5-51.1); MEAN CORPUSCULAR HEMOGLOBIN 25 pg (27-31); MEAN CORPUSCULAR HGB CONC 32 g/dL (33-37); MEAN CORPUSCULAR VOLUME 77.4 fL (80-94); MONOCYTES # (AUTO) 0.3 K/uL (0.8-1.0); MONOCYTES % (AUTO) 2.7 % (1.7-9.3); NEUTROPHILS # (AUTO) 9.6 K/uL (1.8-7.7); NEUTROPHILS % (AUTO) 90.7 % (42.2-75.2); PLATELET COUNT (AUTO) 198 K/uL (140-450); RED BLOOD CELL COUNT(AUTO) 3.78 MIL/uL (4.20-5.40); RED CELL DISTRIBUTION WIDTH 20.3 % (11.6-13.7); WHITE BLOOD COUNT (AUTO) 10.5 K/uL (4.8-10.8)
[2024-01-19 05:40] LABS: ALBUMIN 2.9 g/dL (3.4-5.0); ANION GAP 9.3 (8-16); CALCIUM 8.1 mg/dL (8.5-10.1); CARBON DIOXIDE 32.7 mmol/L (21-32); CREATININE 0.8 mg/dL (0.6-1.3); MAGNESIUM 2.1 mg/dL (1.8-2.4); TOTAL BILIRUBIN 0.2 mg/dL (0.0-1.0)
[2024-01-19 07:55] VITALS: RESP 18; O2SAT 96
[2024-01-19 08:00] VITALS: BP 133/69; PULSE 50; PULSE 56; RESP 18; TEMP 97.7; O2SAT 96; O2SAT 97
[2024-01-19 12:58] VITALS: BP 133/69; PULSE 50; RESP 18; TEMP 97.7
[2024-01-19] MEDS ORDERED: CEFU500T73 PO (13:31)
[2024-01-19] MEDS ORDERED: METH4TAB1 PO (13:31)
== END 2024-01-19 15:49 | disposition home or self-care (01) | DRG 291 ==
LOC: MED 01:25 → MTU 03:55
PROVIDERS: ADMIT Hospitalist; ATTEND Hospitalist
DX: I11.0 Hypertensive heart disease with heart failure (principal); I50.43 Acute on chronic combined systolic (congestive) and diastolic (congestive) heart failure; J18.9 Pneumonia, unspecified organism; J96.21 Acute and chronic respiratory failure with hypoxia; J44.1 Chronic obstructive pulmonary disease with (acute) exacerbation; E11.9 Type 2 diabetes mellitus without complications; Z79.82 Long term (current) use of aspirin; Z79.899 Other long term (current) drug therapy; Z79.51 Long term (current) use of inhaled steroids; Z79.01 Long term (current) use of anticoagulants
CPT/HCPCS: 36415; 71045; 80048; 80053; 80076; 82550; 82948; 83605; 83735; 83880; 84484; 85025; 85610; 85730; 87040; 87081; 93005; 94640; 96374; 96375; 97116; 97163-GP; 97530; 99291; J0456; J0696; J1644; J1815; J2270; J2405; J2919; J3490; J7060; Q0092

== ENCOUNTER 2024-02-26 15:03 | Observation (INO) | payer OTHER, MEDICAID ==
[~2024-02-26] VITALS: Ht 167.6 cm; Wt 104.3 kg
[~2024-02-26 15:03] MED LIST changes: +CEFU500T73 PO; -DEC10I IVP; +METH4TAB1 PO
[2024-02-26 15:29] VITALS: BP 110/56; PULSE 85; RESP 18; TEMP 99.1
[2024-02-26 16:30] LABS: MONOCYTES # (AUTO) 0.6 K/uL (0.8-1.0); RED CELL DISTRIBUTION WIDTH 19.5 % (11.6-13.7)
[2024-02-26 16:45] LABS: CALCIUM 7.8 mg/dL (8.5-10.1); CARBON DIOXIDE 32.4 mmol/L (21-32); CREATININE 0.8 mg/dL (0.6-1.3); POTASSIUM 3.4 mmol/L (3.5-5.1)
[2024-02-26 16:46] LABS: BASOPHILS % (AUTO) 0.1 % (0.0-2.0); EOSINOPHILS # (AUTO) 0.1 K/uL (0-0.4); EOSINOPHILS % (AUTO) 0.4 % (0.0-4.0); HEMATOCRIT 30.4 % (36-48); HEMOGLOBIN 9.5 g/dL (12.0-16.0); LYMPHOCYTES % (AUTO) 6.9 % (20.5-51.1); MEAN CORPUSCULAR HEMOGLOBIN 25 pg (27-31); MEAN CORPUSCULAR HGB CONC 31 g/dL (33-37); MEAN CORPUSCULAR VOLUME 79.1 fL (80-94); MONOCYTES % (AUTO) 3.7 % (1.7-9.3); NEUTROPHILS # (AUTO) 13.3 K/uL (1.8-7.7); NEUTROPHILS % (AUTO) 88.9 % (42.2-75.2); PLATELET COUNT (AUTO) 231 K/uL (140-450); RED BLOOD CELL COUNT(AUTO) 3.84 MIL/uL (4.20-5.40)
[2024-02-26 16:51] LABS: ALBUMIN 2.8 g/dL (3.4-5.0); BILIRUBIN,DIRECT 0.1 mg/dL (0.0-0.3); TOTAL BILIRUBIN 0.3 mg/dL (0.0-1.0); TOTAL PROTEIN, SERUM 5.8 g/dL (6.4-8.2)
[2024-02-26 17:43] LABS: APPEARANCE,URINE CLEAR (CLEAR); BILIRUBIN,URINE NEGATIVE (NEGATIVE); BLOOD, URINE TRACE-I (NEGATIVE); COLOR,URINE YELLOW (YELLOW); LEUKOCYTE ESTERASE ,URINE NEGATIVE (NEGATIVE); NITRITE, URINE NEGATIVE (NEGATIVE); PH,URINE 6.5 (5.0-9.0); PROTEIN,URINE NEGATIVE (NEGATIVE); UGLUCOSE NEGATIVE (NEGATIVE); UROBILINOGEN,URINE 0.2 EU/dL (0.2 - 1)
[2024-02-26 17:55] LABS: BACTERIA,URINE FEW /HPF (None Seen); RBC,URINE 0-5 /HPF (0-5); SQUAMOUS EPITHELIAL CELL,UR 0-3 (FEW) /LPF (0-3 (FEW)); WBC,URINE 0-5 /HPF (0-5)
[2024-02-26] MEDS: metroNIDAZOLE 500 MG/NS PREMIX 100 ML IV ONE (18:40)
[2024-02-26] MEDS: NACL 0.9% 1,500 ML IV ONE (19:06)
[2024-02-26 19:09] LABS: LACTIC ACID 1.2 mmol/L (0.4-2.0)
[2024-02-26] MEDS: MORPHINE SULFATE 4 MG/ML SYR IVP ONE (21:22)
[2024-02-26] MEDS: NACL 0.9% 1,000 ML IV SCH (21:30)
[2024-02-26] MEDS ORDERED: ONDANSETRON 4 MG/2 ML VIAL IVP PRN (21:30)
[2024-02-26 21:31] VITALS: O2SAT 94
[2024-02-26] MEDS ORDERED: DEXTROSE 50% 50 ML SYR IVP PRN (21:45)
[2024-02-26] MEDS ORDERED: INSULIN LISPRO SLIDING SCALE 100 UNITS/ML VIAL SUBQ PRN (21:45)
[2024-02-26] MEDS ORDERED: cefTRIAXone 1,000 MG VIAL ONE (22:11)
[2024-02-26] MEDS: HYDROcodone/APAP 5/325 MG 1 TAB TAB PO PRN (22:25)
[2024-02-26 23:47] VITALS: RESP 20; O2SAT 95
[2024-02-27] VITALS (7 sets, daily range): BP systolic 97–125; BP diastolic 56–65; PULSE 55–94; RESP 14–18; TEMP 96.9–98.3; O2SAT 95–97
[2024-02-27] MEDS: metroNIDAZOLE 250 MG TAB PO SCH (05:09)
[2024-02-27 06:57] LABS: BASOPHILS % (AUTO) 0.1 % (0.0-2.0); EOSINOPHILS # (AUTO) 0.1 K/uL (0-0.4); EOSINOPHILS % (AUTO) 1.2 % (0.0-4.0); HEMATOCRIT 27.4 % (36-48); HEMOGLOBIN 8.6 g/dL (12.0-16.0); LYMPHOCYTES # (AUTO) 1.5 K/uL (2.5-16.5); LYMPHOCYTES % (AUTO) 18.1 % (20.5-51.1); MEAN CORPUSCULAR HEMOGLOBIN 25 pg (27-31); MEAN CORPUSCULAR HGB CONC 32 g/dL (33-37); MEAN CORPUSCULAR VOLUME 79.7 fL (80-94); MONOCYTES # (AUTO) 0.6 K/uL (0.8-1.0); MONOCYTES % (AUTO) 6.5 % (1.7-9.3); NEUTROPHILS # (AUTO) 6.3 K/uL (1.8-7.7); NEUTROPHILS % (AUTO) 74.1 % (42.2-75.2); PLATELET COUNT (AUTO) 202 K/uL (140-450); RED BLOOD CELL COUNT(AUTO) 3.43 MIL/uL (4.20-5.40); RED CELL DISTRIBUTION WIDTH 19.2 % (11.6-13.7); WHITE BLOOD COUNT (AUTO) 8.5 K/uL (4.8-10.8)
[2024-02-27] MEDS: LEVOTHYROXINE 0.025 MG TAB PO SCH (07:25)
[2024-02-27] MEDS: LEVOTHYROXINE 0.1 MG, LEVOTHYROXINE 0.025 MG PO SCH (07:27)
[2024-02-27] MEDS: BLOOD GLUCOSE MONITORING 1 DEV DEV FS SCH (07:30)
[2024-02-27 07:34] LABS: ALBUMIN 2.4 g/dL (3.4-5.0); ANION GAP 9.2 (8-16); CALCIUM 7.5 mg/dL (8.5-10.1); CREATININE 0.7 mg/dL (0.6-1.3); MAGNESIUM 1.6 mg/dL (1.8-2.4); POTASSIUM 3.2 mmol/L (3.5-5.1); TOTAL BILIRUBIN 0.2 mg/dL (0.0-1.0); TOTAL PROTEIN, SERUM 5.3 g/dL (6.4-8.2)
[2024-02-27] MEDS: ATORVASTATIN 20 MG TAB PO SCH (09:10)
[2024-02-27] MEDS: ARIPiprazole 10 MG TAB PO SCH (09:11)
[2024-02-27] MEDS: ENOXAPARIN 40 MG/0.4 ML SYR SUBQ SCH (09:11)
[2024-02-27] MEDS: ASPIRIN 81 MG TAB.CHEW PO SCH (09:11)
[2024-02-27] MEDS: OXYBUTYNIN 5 MG TAB PO SCH (09:12)
[2024-02-27] MEDS: FAMOTIDINE 20 MG TAB PO SCH (09:12)
[2024-02-27] MEDS: ESCITALOPRAM 20 MG TAB PO SCH (09:12)
[2024-02-27] MEDS: DIVALPROEX 500 MG TABEC PO SCH (09:12)
[2024-02-27] MEDS: PREGABALIN 50 MG CAP PO SCH (09:12)
[2024-02-27] MEDS: MORPHINE SULFATE 4 MG/ML SYR IVP ONE (12:00)
[2024-02-27] MEDS: MORPHINE SULFATE 2 MG/ML SYR IVP PRN (12:45)
[2024-02-27] MEDS: POTASSIUM CHLORIDE 10 MEQ TABER PO PRN (18:34)
[2024-02-27] MEDS ORDERED: ZOLPIDEM 5 MG TAB PO PRN (22:10)
[2024-02-28 00:47] VITALS: O2SAT 98
[2024-02-28 02:48] VITALS: O2SAT 98
[2024-02-28 03:02] VITALS: BP 114/65; PULSE 59; RESP 18; TEMP 97; O2SAT 96
[2024-02-28 05:08] VITALS: O2SAT 96
[2024-02-28] MEDS: LEVOTHYROXINE 0.025 MG TAB ONE (07:02)
[2024-02-28] MEDS: LEVOTHYROXINE 0.1 MG TAB ONE (07:03)
[2024-02-28 08:00] VITALS: BP 113/69; PULSE 60; RESP 18; TEMP 97; O2SAT 93; O2SAT 97
[2024-02-28] MEDS ORDERED: CEFP200T20 PO (15:08)
[2024-02-28] MEDS ORDERED: METR-520 PO (15:08)
== END 2024-02-28 16:30 | disposition home or self-care (01) ==
LOC: MED 15:03 → MMU 21:41 → MTU 21:59
PROVIDERS: ADMIT Internal Medicine; ATTEND Internal Medicine
DX: J44.9 Chronic obstructive pulmonary disease, unspecified (principal); J84.10 Pulmonary fibrosis, unspecified; A09 Infectious gastroenteritis and colitis, unspecified; I10 Essential (primary) hypertension; E78.5 Hyperlipidemia, unspecified; E03.9 Hypothyroidism, unspecified; E43 Unspecified severe protein-calorie malnutrition; E11.9 Type 2 diabetes mellitus without complications; D64.9 Anemia, unspecified; D72.829 Elevated white blood cell count, unspecified; Z68.37 Body mass index [BMI] 37.0-37.9, adult; Z79.899 Other long term (current) drug therapy
CPT/HCPCS: 36415; 80048; 80053; 80076; 81001; 82948; 83605; 83690; 83735; 85025; 87040; 87081; 94760; 96361; 96365; 96366; 96367; 96372; 96375; 96376; 99284; G0378; J0696; J1650; J1815; J2270; J3490; J7060